=== PATIENT | male | born 1975 | race Two or more races ===

== ENCOUNTER 2022-02-13 21:50 | Emergency (ER) | payer OTHER ==
[2022-02-13 22:10] VITALS: BP 142/94; PULSE 82; TEMP 98.3; BMI 30.7
[2022-02-14] MEDS ORDERED: ACETAMINOPHEN 1000 MG/100 ML BAG IVPB ONE (00:23)
[2022-02-14] MEDS ORDERED: ACETAMINOPHEN INJECTION 100 ML IVPB ONE (01:22)
[2022-02-14 01:57] LABS: BASO % 1.4 % (0-2.0); EOS % 4.2 % (0-4.5); HEMATOCRIT 42.6 % (35.4-49); HEMOGLOBIN 14.5 GM/dL (11.7-16.9); LYMPH % 46.5 % (8-40); MCH 29.1 pg (25.7-33.7); MCHC 33.9 g/dl (32.0-35.9); MEAN CELL VOLUME 85.8 fl (80-96); MEAN PLT VOLUME 8.3 fl (7.5-11.1); MONO % 5.2 % (3.8-10.2); NEUT % 42.7 % (42.8-82.8); PLATELET COUNT 236 10^3/uL (134-434); RBC 4.96 M/mm3 (4.00-5.60); RDW 13.3 % (11.9-15.9); WHITE BLOOD COUNT 6.4 K/mm3 (4.0-10.0)
[2022-02-14 02:05] LABS: INR 0.91 (0.83-1.09); PROTHROMBIN TIME (PATIENT) 10.5 SEC (9.7-13.0)
[2022-02-14 02:08] LABS: ACTIVATED PTT 31.9 SECONDS (25.2-36.5)
[2022-02-14 02:22] LABS: CREATININE 0.9 mg/dL (0.55-1.3)
[2022-02-14 02:24] LABS: BILIRUBIN,TOTAL 0.5 mg/dL (0.2-1)
[2022-02-14 04:31] LABS: URINE APPEARANCE CLEAR; URINE BILIRUBIN NEGATIVE (NEGATIVE); URINE COLOR YELLOW; URINE GLUCOSE (UA) NEGATIVE (NEGATIVE); URINE KETONE NEGATIVE (NEGATIVE); URINE LEUK ESTERASE NEGATIVE (NEGATIVE); URINE NITRITE NEGATIVE (NEGATIVE); URINE PROTEIN NEGATIVE (NEGATIVE); URINE UROBILINOGEN 0.2 mg/dL (0.2-1.0)
== END 2022-02-14 05:13 | disposition home or self-care (01) ==
LOC: JER 21:50
PROC: 3E0333Z Introduction of Anti-inflammatory into Peripheral Vein, Percutaneous Approach (ICD-10-PCS; principal; 2022-02-13)
DX: R10.32 Left lower quadrant pain (principal); Z48.815 Encounter for surgical aftercare following surgery on the digestive system
CPT/HCPCS: 36415; 74176-TC; 80053; 81003; 83605; 85025; 85610; 85730; 87086; 93005; 93010; 99285-25